=== PATIENT | female | born 1955 | race Caucasian/White ===

== ENCOUNTER 2016-03-30 05:41 | Day surgery (SDC) | payer OTHER ==
[~2016-03-30] VITALS: Ht 165.1 cm; Wt 160.0 kg
[~2016-03-30 05:41] MED LIST: ACETAMINOPHEN325 M1 PO; AMLODIPINE BESYL5 MG PO; ASPIR-LOW81 MG PO; ASPIRIN81 M2 PO; CALCIUM ACETAT667 M2 PO; CALCIUM ACETAT667 MG PO; CLOBETASOL PROP60 GM TP; COLACE100 MG PO; CUTIVATE 0.005%60 GM TP; DOCUSATE SODIU100 MG PO; DOXYCYCLINE HY150 MG PO; ESCITALOPRAM OX10 MG PO; FEXOFENADINE H180 MG PO; FLUTICASONE PRO30 GM TP; FLUTICASONE PRO60 ML TP; FUROSEMIDE80 MG PO; HYDROCODON-ACE1 EAC7 PO; JANUVIA25 MG PO; KENALOG,ARISTOC80 GM TP; LEXAPRO10 MG PO; LOPRESSOR50 MG PO; NEPHRO-VITE,1 TABLET PO; NEPHROCAPS SOFTG1 MG PO; NITROSTAT0.4 MG SL; NYAMYC60 GM TP; OMEPRAZOLE40 M1 PO; PRESERVISION T1 EACH PO; SIMVASTATIN10 MG PO; SORBITOL SOLUT500 ML MC; SORBITOL SOLUT500 ML PO; SUPREP BOWEL P354 ML PO; TRIAMCINOLONE A15 GM TP; TYLENOL REGULA325 MG PO; ULORIC40 MG PO; VENTOLIN HFA18 GM IH; [UNRECOGNIZED DRUG - SUPPLY] TP
[2016-03-30 08:53] LABS: POINT-OF-CARE METER ID UU13113696
[2016-03-30 10:54] LABS: METH RESISTANT S AUREUS PCR NEGATIVE (NEGATIVE)
[2016-03-30 10:55] LABS: PROBE CHECK PASS; SPECIMEN PROCESSING CONTROL PASS
[2016-03-30 11:13] LABS: POINT-OF-CARE METER ID UU13113819; POINT-OF-CARE USER ID 515036437
== END 2016-03-30 15:05 | disposition home or self-care (01) ==
LOC: CATH 05:41
PROVIDERS: Surgery
PROC: 05HY33Z Insertion of Infusion Device into Upper Vein, Percutaneous Approach (ICD-10-PCS; principal; 2016-03-30)
PROC: B51W1ZZ Fluoroscopy of Dialysis Shunt/Fistula using Low Osmolar Contrast (ICD-10-PCS; principal; 2016-03-30)
PROC: 037Y3ZZ Dilation of Upper Artery, Percutaneous Approach (ICD-10-PCS; principal; 2016-03-30)
PROC: 3E03317 Introduction of Other Thrombolytic into Peripheral Vein, Percutaneous Approach (ICD-10-PCS; principal; 2016-03-30)
DX: T82.858A Stenosis of other vascular prosthetic devices, implants and grafts, initial encounter (principal); Y83.2 Surgical operation with anastomosis, bypass or graft as the cause of abnormal reaction of the patient, or of later complication, without mention of misadventure at the time of the procedure; I12.0 Hypertensive chronic kidney disease with stage 5 chronic kidney disease or end stage renal disease; E11.22 Type 2 diabetes mellitus with diabetic chronic kidney disease; N18.6 End stage renal disease; Z99.2 Dependence on renal dialysis; Z79.84 Long term (current) use of oral hypoglycemic drugs; Z79.82 Long term (current) use of aspirin; Z87.891 Personal history of nicotine dependence; Z88.0 Allergy status to penicillin; Z88.1 Allergy status to other antibiotic agents; Z88.2 Allergy status to sulfonamides
CPT/HCPCS: 82948; 87081; 87641; C1725; C1769; C1894; J1644; J2250; J3010

== ENCOUNTER 2016-07-13 06:43 | Day surgery (SDC) | payer OTHER ==
[~2016-07-13] VITALS: Ht 175.3 cm; Wt 159.2 kg
[2016-07-13 07:46] LABS: POINT-OF-CARE METER ID UU13113696; POINT-OF-CARE USER ID HMLCJM07
[2016-07-13 08:47] LABS: POINT-OF-CARE METER ID UU13113675
[2016-07-13 08:49] LABS: METH RESISTANT S AUREUS PCR NEGATIVE (NEGATIVE); PROBE CHECK PASS; SPECIMEN PROCESSING CONTROL PASS
== END 2016-07-13 09:50 ==
LOC: CATH 06:43
PROVIDERS: Surgery
DX: T82.858A Stenosis of other vascular prosthetic devices, implants and grafts, initial encounter (principal); Y83.2 Surgical operation with anastomosis, bypass or graft as the cause of abnormal reaction of the patient, or of later complication, without mention of misadventure at the time of the procedure; I12.0 Hypertensive chronic kidney disease with stage 5 chronic kidney disease or end stage renal disease; E11.22 Type 2 diabetes mellitus with diabetic chronic kidney disease; N18.6 End stage renal disease; Z99.2 Dependence on renal dialysis; Z79.84 Long term (current) use of oral hypoglycemic drugs; Z87.891 Personal history of nicotine dependence; Z79.82 Long term (current) use of aspirin; Z88.1 Allergy status to other antibiotic agents; Z88.0 Allergy status to penicillin; Z88.2 Allergy status to sulfonamides
CPT/HCPCS: 82948; 87641; C1725; C1769; C1894; J1644; J2250; J3010

== ENCOUNTER 2016-07-24 13:36 | Day surgery (SDC) | payer OTHER ==
[2016-07-24 15:40] LABS: METH RESISTANT S AUREUS PCR NEGATIVE (NEGATIVE)
[2016-07-24 15:45] LABS: PROBE CHECK PASS; SPECIMEN PROCESSING CONTROL PASS
== END 2016-07-24 16:46 ==
LOC: CATH 13:36
PROVIDERS: Surgery
DX: T82.868A Thrombosis due to vascular prosthetic devices, implants and grafts, initial encounter (principal); I12.0 Hypertensive chronic kidney disease with stage 5 chronic kidney disease or end stage renal disease; E11.22 Type 2 diabetes mellitus with diabetic chronic kidney disease; N18.6 End stage renal disease; Z99.2 Dependence on renal dialysis; Z79.84 Long term (current) use of oral hypoglycemic drugs; Z79.82 Long term (current) use of aspirin; Z87.891 Personal history of nicotine dependence; Z88.0 Allergy status to penicillin; Z88.1 Allergy status to other antibiotic agents; Z88.2 Allergy status to sulfonamides; Y83.2 Surgical operation with anastomosis, bypass or graft as the cause of abnormal reaction of the patient, or of later complication, without mention of misadventure at the time of the procedure
CPT/HCPCS: 87641; C1725; C1757; C1769; C1894; C2628; J1644; J2250; J3010; S0020

== ENCOUNTER 2016-11-14 06:44 | Day surgery (SDC) | payer OTHER ==
[~2016-11-14] VITALS: Ht 165.1 cm; Wt 157.4 kg
[~2016-11-14 06:44] MED LIST changes: +CILOSTAZOL50 MG PO; +MUPIROCIN22 GM TP; +TOUJEO SOL300 UNIT/1 SC; +ZOFRAN4 MG PO
[2016-11-14 08:00] LABS: POINT-OF-CARE METER ID UU13113696
[2016-11-14 09:05] LABS: METH RESISTANT S AUREUS PCR NEGATIVE (NEGATIVE)
[2016-11-14 09:16] LABS: PROBE CHECK PASS; SPECIMEN PROCESSING CONTROL PASS
== END 2016-11-14 10:33 | disposition home or self-care (01) ==
LOC: CATH 06:44
PROVIDERS: Surgery
PROC: 057Y3ZZ Dilation of Upper Vein, Percutaneous Approach (ICD-10-PCS; principal; 2016-11-14)
DX: T82.858A Stenosis of other vascular prosthetic devices, implants and grafts, initial encounter (principal); I12.0 Hypertensive chronic kidney disease with stage 5 chronic kidney disease or end stage renal disease; E11.22 Type 2 diabetes mellitus with diabetic chronic kidney disease; N18.6 End stage renal disease; Z99.2 Dependence on renal dialysis; Z88.0 Allergy status to penicillin; Z88.2 Allergy status to sulfonamides
CPT/HCPCS: 82948; 87641; C1725; C1769; C1894; J1644; J2250; J3010

== ENCOUNTER 2017-05-29 06:58 | Day surgery (SDC) | payer OTHER ==
[~2017-05-29] VITALS: Ht 165.1 cm; Wt 153.0 kg
[~2017-05-29 06:58] MED LIST changes: +HUMALOG100 UNIT/2 SC; +LOSARTAN POTASS25 MG PO; +RENVELA800 MG PO
== END 2017-05-29 13:35 | disposition home or self-care (01) ==
LOC: CATH 06:58
PROVIDERS: Surgery
DX: T82.858A Stenosis of other vascular prosthetic devices, implants and grafts, initial encounter (principal); I12.0 Hypertensive chronic kidney disease with stage 5 chronic kidney disease or end stage renal disease; E11.22 Type 2 diabetes mellitus with diabetic chronic kidney disease; N18.6 End stage renal disease; Z99.2 Dependence on renal dialysis; E78.5 Hyperlipidemia, unspecified; Z79.4 Long term (current) use of insulin; Y83.2 Surgical operation with anastomosis, bypass or graft as the cause of abnormal reaction of the patient, or of later complication, without mention of misadventure at the time of the procedure
CPT/HCPCS: 82948; 87641; C1725; C1769; C1894; J1644; J2250; J3010

== ENCOUNTER 2017-09-25 07:06 | Day surgery (SDC) | payer OTHER ==
[~2017-09-25] VITALS: Ht 175.3 cm; Wt 150.0 kg
[~2017-09-25 07:06] MED LIST changes: +HUMALOG100 UNIT/1 SC; +HUMALOG100 UNIT/1 SQ; +METOPROLOL SUCC50 MG PO; +NYSTATIN15 GM TP
== END 2017-09-25 13:42 | disposition home or self-care (01) ==
LOC: CATH 07:06
PROVIDERS: Surgery
DX: T82.858A Stenosis of other vascular prosthetic devices, implants and grafts, initial encounter (principal); Y83.2 Surgical operation with anastomosis, bypass or graft as the cause of abnormal reaction of the patient, or of later complication, without mention of misadventure at the time of the procedure; I12.0 Hypertensive chronic kidney disease with stage 5 chronic kidney disease or end stage renal disease; E11.22 Type 2 diabetes mellitus with diabetic chronic kidney disease; N18.6 End stage renal disease; E78.00 Pure hypercholesterolemia, unspecified; Z99.2 Dependence on renal dialysis; Z87.891 Personal history of nicotine dependence; Z79.4 Long term (current) use of insulin; Z88.0 Allergy status to penicillin; Z88.2 Allergy status to sulfonamides; Z88.1 Allergy status to other antibiotic agents; Z79.82 Long term (current) use of aspirin
CPT/HCPCS: 82948; 87641; C1725; C1769; C1894; J1644; J2250; J3010